=== PATIENT | male | born 1995 | race Caucasian/White ===

== ENCOUNTER 2024-05-30 14:39 | Emergency (ER) | payer MEDICAID ==
[~2024-05-30] VITALS: Ht 172.7 cm; Wt 68.2 kg
[~2024-05-30 14:39] MED LIST: NO HOME MEDS
[2024-05-30] MEDS ORDERED: AMOX-580 PO (17:18)
[2024-05-30] MEDS: TETanus/Pertussis (Acell)/Diphther VAC/PF (Tdap-Adult) 0.5ml syringe IMVAC ONE (17:59)
[2024-05-30 18:05] VITALS: BP 123/79; PULSE 83; RESP 16; TEMP 98.4; O2SAT 99
== END 2024-05-30 18:06 | disposition home or self-care (01) ==
LOC: ER 14:40
DX: S01.80XA Unspecified open wound of other part of head, initial encounter (principal); S02.5XXA Fracture of tooth (traumatic), initial encounter for closed fracture; Z88.1 Allergy status to other antibiotic agents; X58.XXXA Exposure to other specified factors, initial encounter; Y93.55 Activity, bike riding; Y92.89 Other specified places as the place of occurrence of the external cause; Y99.8 Other external cause status
CPT/HCPCS: 70450; 70486; 72125; 73080; 73564; 90471; 90715; 99285; J7030; A6449